=== PATIENT | male | born 1990 | race Caucasian/White ===

== ENCOUNTER 2019-07-20 11:37 | Emergency (ER) | payer MEDICAID ==
[~2019-07-20] VITALS: Ht 154.9 cm; Wt 63.5 kg
[2019-07-20 12:10] VITALS: BP 122/77
--- NOTE | 2019-07-20 12:14 | NUR ---
FLU SWAB COLLECTED
--- NOTE | 2019-07-20 14:08 | NUR ---
PT AMBULATED TO ER BED 3
--- NOTE | 2019-07-20 14:20 | NUR ---
28/M BIB FAMILY C/O GENERALIZED WEAKNESS WITH NAUSEA, COUGH, CONGESTION, AND BODYACHES X THIS AM. HX--Polymyositis. PATIENT STATES PAIN OF 80/10 AT THIS TIME. PATIENT POSITIONED FOR COMFORT; HOB ELEVATED; BEDRAILS UP X1; BED DOWN. ER MD MADE AWARE OF PT STATUS.
--- NOTE | 2019-07-20 14:42 | NUR ---
Patient discharged with v/s stable. Written and verbal after care instructions given and explained. Patient alert, oriented and verbalized understanding of instructions. Ambulatory with steady gait. All questions addressed prior to discharge. ID band removed. Patient advised to follow up with PMD. Rx of TAMIFLU AND ZOFRAN given. Patient educated on indication of medication including possible reaction and side effects. Opportunity to ask questions provided and answered.
[2019-07-20 14:45] VITALS: BP 122/77
== END 2019-07-20 14:42 | disposition home or self-care (01) ==
LOC: MED 11:37
DX: B34.9 Viral infection, unspecified (principal)
CPT/HCPCS: 87804; 99283